=== PATIENT | female | born 1945 ===

== ENCOUNTER 2021-01-08 05:55 | Day surgery (SDC) | payer OTHER ==
[~2021-01-08] VITALS: Ht 149.9 cm; Wt 67.1 kg
[~2021-01-08 05:55] MED LIST: B12 ACTIVE1000 MCG PO; BONIVA150 MG PO; CLONAZEPAM0.5 MG PO; COZAAR100 MG PO; D3 + K2 DOTS 11 EACH PO; FOLIC ACID0.8 M1 PO; HYDROCHLOROTHIA25 MG PO; NORVASC10 MG PO; TOPROL XL50 M1 PO
[2021-01-08] MEDS ORDERED: ULTRACET PO (08:29)
== END 2021-01-08 11:40 | disposition home or self-care (01) ==
LOC: CIR.AMB 05:55 → SURH 05:55 → O/R 05:55 → CIR.AMB 11:40 → SURH 11:45 → EDSTATUS 11:45 → SURH 15:00
PROVIDERS: ATTEND Surgery
PROC: 05H633Z Insertion of Infusion Device into Left Subclavian Vein, Percutaneous Approach (ICD-10-PCS; principal; 2021-01-08 15:00)
DX: C18.0 Malignant neoplasm of cecum (principal); Z20.822 Contact with and (suspected) exposure to COVID-19